=== PATIENT | female | born 1960 | race Caucasian/White ===

== ENCOUNTER 2016-06-30 10:06 | Emergency (ER) | payer BC, OTHER ==
[2016-06-30 10:38] VITALS: BP 131/73
--- NOTE | 2016-06-30 10:53 | ER Document Report ---
ED Medical Screen (RME) - General Chief Complaint: Knee Pain Stated Complaint: KNEE PAIN Time seen by provider: 10:51 Mode of Arrival: Ambulatory Information source: Patient Notes: 55-year-old female presents to ED for pain in the back of the right knee for 3 days. This morning when she went to put her shoes on and she felt a pop in the back of her knee and the pain was so bad she cannot put her foot down. It did ease off and now she is able to walk. She states the pain is like a burning pain. States she has a history of varicose veins but not blood clots. She states she's been through menopause I have greeted and performed a rapid initial assessment of this patient. A comprehensive ED assessment and evaluation of the patient, analysis of test results and completion of medical decision making process will be conducted by an additional ED providers. TRAVEL OUTSIDE OF THE [place] IN LAST 30 DAYS: No - Related Data Allergies/Adverse Reactions: poliomyelitis vaccine, live oral [Poliomyelitis Vaccine,Live] Allergy (Verified 06/30/16 10:49) unsure happened when was a child rutuss Allergy (Severe, Uncoded 06/30/16 10:49) Edema bandaids Adverse Reaction (Intermediate, Uncoded 06/30/16 10:49) Blisters Past Medical History - Past Medical History Cardiac Medical History: Reports: Hx Hypercholesterolemia, Hx Hypertension Denies: Hx Coronary Artery Disease, Hx Heart Attack Pulmonary Medical History: Reports: Hx Asthma, Hx Pneumonia - hx Denies: Hx Bronchitis, Hx COPD Neurological Medical History: Denies: Hx Cerebrovascular Accident, Hx Seizures GI Medical History: Reports: Hx Gastroesophageal Reflux Disease Musculoskeltal Medical History: Reports Hx Arthritis Past Surgical History: Denies: Hx Hysterectomy, Hx Pacemaker - Immunizations Hx Diphtheria, Pertussis, Tetanus Vaccination: Yes Physical Exam - Vital signs Vitals: Temp Pulse Resp BP Pulse Ox 98.2 F 58 L 20 131/73 H 95 06/30/16 10:37 06/30/16 10:37 06/30/16 10:37 06/30/16 10:37 06/30/16 10:37 Course - Vital Signs Vital signs: Temp Pulse Resp BP Pulse Ox 98.2 F 58 L 20 131/73 H 95 06/30/16 10:37 06/30/16 10:37 06/30/16 10:37 06/30/16 10:37 06/30/16 10:37
--- NOTE | 2016-06-30 12:00 | ER Document Report ---
ED Extremity Problem, Lower - General Chief Complaint: Knee Pain Stated Complaint: KNEE PAIN Mode of Arrival: Ambulatory Information source: Patient Notes: 55-year-old female presents to the emergency department complaining of posterior right knee pain over the last 3 days. Patient reports onset of sharp pain to posterior right knee that began 3 days ago. States pain seems to be worse in the mornings, worse with weightbearing/movement/ambulation. States pain is nonradiating and denies swelling of the knee/thigh/calf, redness, warmth , extremity weakness/numbness/tingling, or color changes. Denies obvious injury , trauma, or fall, or recent illness. TRAVEL OUTSIDE OF THE [place] IN LAST 30 DAYS: No - HPI Patient complains to provider of: Pain Location: Knee Onset/Duration: Intermittent, Persistent Quality of pain: Achy, Sharp Severity: Mild Pain Level: 2 Recent injury: No Associated symptoms: Painful ambulation. denies: Unable to bear weight Exacerbated by: Movement, Walking Relieved by: Elevation, Rest - Related Data Allergies/Adverse Reactions: poliomyelitis vaccine, live oral [Poliomyelitis Vaccine,Live] Allergy (Verified 06/30/16 10:49) unsure happened when was a child rutuss Allergy (Severe, Uncoded 06/30/16 10:49) Edema bandaids Adverse Reaction (Intermediate, Uncoded 06/30/16 10:49) Blisters Past Medical History - General Information source: Patient - Social History Smoking Status: Former Smoker Chew tobacco use (# tins/day): No Frequency of alcohol use: None Drug Abuse: None Lives with: Family Family History: Reviewed & Not Pertinent Patient has suicidal ideation: No Patient has homicidal ideation: No - Past Medical History Cardiac Medical History: Reports: Hx Hypercholesterolemia, Hx Hypertension Denies: Hx Coronary Artery Disease, Hx Heart Attack Pulmonary Medical History: Reports: Hx Asthma, Hx Pneumonia - hx Denies: Hx Bronchitis, Hx COPD Neurological Medical History: Denies: Hx Cerebrovascular Accident, Hx Seizures Renal/ Medical History: Denies: Hx Peritoneal Dialysis GI Medical History: Reports: Hx Gastroesophageal Reflux Disease Musculoskeltal Medical History: Reports Hx Arthritis Surgical Hx: Negative Past Surgical History: Denies: Hx Hysterectomy, Hx Pacemaker - Immunizations Hx Diphtheria, Pertussis, Tetanus Vaccination: Yes Review of Systems - Review of Systems Constitutional: No symptoms reported EENT: No symptoms reported Cardiovascular: No symptoms reported Respiratory: No symptoms reported Gastrointestinal: No symptoms reported Genitourinary: No symptoms reported Female Genitourinary: No symptoms reported Musculoskeletal: See HPI Skin: No symptoms reported Hematologic/Lymphatic: No symptoms reported Neurological/Psychological: No symptoms reported -: Yes All other systems reviewed and negative Physical Exam - Vital signs Vitals: Temp Pulse Resp BP Pulse Ox 98.2 F 58 L 20 131/73 H 95 06/30/16 10:37 06/30/16 10:37 06/30/16 10:37 06/30/16 10:37 06/30/16 10:37 Interpretation: Normal - General General appearance: Appears well, Alert In distress: None - HEENT Head: Normocephalic, Atraumatic Eyes: Normal Pupils: PERRL - Respiratory Respiratory status: No respiratory distress Chest status: Nontender Breath sounds: Normal Chest palpation: Normal - Cardiovascular Rhythm: Regular Heart sounds: Normal auscultation Murmur: No Pulses: Normal: Radial, Posterior tibial, Dorsalis pedis Normal capillary refill: Yes - Abdominal Inspection: Normal Distension: No distension - Back Back: Normal, Nontender - Extremities General upper extremity: Normal inspection, Nontender, Normal color, Normal ROM , Normal strength, Normal temperature. No: Tender, Edema General lower extremity: Normal inspection, Nontender, Normal color, Normal ROM , Normal strength, Normal temperature, Normal weight bearing. No: Tender, Edema , Nissa's sign Thigh: Nontender Knee: Nontender, Other - No swelling, bruising, warmth, erythema, or tenderness to anterior or posterior knee. No suggestion of abscess or Palma's cyst. Mild pain with valgus stress otherwise full and painless active and passive range of motion and weightbearing. Distal neurovascular function intact.. No: Deformity , Ecchymosis, Instability, Joint effusion, Popliteal fossa tender, Tender joint line, Unable to bear weight Calf: Nontender - Neurological Neuro grossly intact: Yes Cognition: Normal Orientation: AAOx4 Rut[place] Coma Scale Eye Opening: Spontaneous Clint Coma Scale Verbal: Oriented [place] Coma Scale Motor: Obeys Commands Clint Coma Scale Total: 15 Speech: Normal Motor strength normal: LUE, RUE, LLE, RLE Sensory: Normal - Psychological Associated symptoms: Normal affect, Normal mood - Skin Skin Temperature: Warm Skin Moisture: Dry Skin Color: Normal Course - Re-evaluation Re-evalutation: 06/30/16 12:17 Patient hemodynamically stable, in no distress, afebrile. Well's DVT criteria score -2/low probability. No indication for ultrasound at this time. Presentation presentation and physical exam findings not suggestive of significant or emergent infectious, inflammatory, or vascular etiology to symptoms. Patient appears stable for discharge and agrees with home care, follow-up with PCP and orthopedics, and strict ED return precautions should symptoms persist or worsen. Patient declined Keith wrap, crutches, or knee immobilizer. Patient presentation, findings, ED care, and plan were discussed with ED physician Dr. Silva who concurs with evaluation and plan. - Vital Signs Vital signs: Temp Pulse Resp BP Pulse Ox 98.2 F 58 L 20 131/73 H 95 06/30/16 10:37 06/30/16 10:37 06/30/16 10:37 06/30/16 10:37 06/30/16 10:37 Discharge - Discharge Clinical Impression: Right knee pain Qualifiers: Chronicity: acute Qualified Code(s): M25.561 - Pain in right knee Condition: Stable Disposition: HOME, SELF-CARE Instructions: Knee Exercise Program ([facility]), Leg Pain Nonspecific ([facility]), Warm Packs ([facility]), Anti-Inflammatory Medication ([facility]), Ice Packs ([facility]) Additional Instructions: Follow-up with your primary care provider and orthopedics this week as discussed. Return to the emergency department for any worsening symptoms or concerns. Prescriptions: Naproxen [Naprosyn 375 Mg Tablet] 375 mg PO BIDP PRN #10 tablet PRN Reason: Forms: Elevated Blood Pressure Referrals: MOMO SIMMONS MD [Primary Care Provider] - Follow up tomorrow PETE LINN MD [ACTIVE STAFF] - Follow up in 3-5 days
== END 2016-06-30 12:45 | disposition home or self-care (01) ==
LOC: ER 10:06
DX: M25.561 Pain in right knee (principal); I10 Essential (primary) hypertension; J45.909 Unspecified asthma, uncomplicated; Z88.7 Allergy status to serum and vaccine; Z87.891 Personal history of nicotine dependence
CPT/HCPCS: 99283

== ENCOUNTER → 2016-07-16 | Outpatient (CLI) | payer BC ==
--- NOTE | 2016-07-16 12:02 | XCELERA REPORT ---
[address] [address] Lower Extremity Venous Evaluation Name: JULIO ESCOBAR Age: 55 yrs Gender: Female : 1960 Patient Status: Outpatient Patient Location: Study Date: 07/16/2016 09:03 AM Procedure: Color flow and duplex imaging bilaterally of the veins of the lower extremities as well as the Common Femoral veins. Reason For Study: BILAT KNEE PAIN Ordering Physician: MOMO SIMMONS Performed By: Quinton Carpenter Right Sided Venous Evaluation A large, lucent , non vascular structure is in the Popliteal fossa, 5.9 x 2.6 cms. Normal vessel filling wall to wall, compression and augmentation as well as Colour flow down to the infrageniculate veins. Left Sided Venous Evaluation Normal vessel filling wall to wall, compression and augmentation as well as Colour flow down to the infrageniculate veins. Interpretation Summary No duplex evidence of DVT or obstruction in the bilateral lower extremities. A Popliteal(Palma's) cyst in noted in the right Popliteal area. : MOMO SIMMONS > Zay Philippe
== END ==
LOC: SP 08:52
PROVIDERS: ATTEND Internal Medicine
DX: M25.561 Pain in right knee (principal); M25.562 Pain in left knee
CPT/HCPCS: 93970

== ENCOUNTER 2017-06-19 14:09 | Emergency (ER) | payer BC, OTHER ==
[2017-06-19 14:14] VITALS: BP 144/80
[2017-06-19] MEDS ORDERED: FAMOTIDINE 20 MG TABLET PO ONE (14:34)
[2017-06-19] MEDS ORDERED: LORATADINE 10 MG TABLET PO ONE (14:34)
[2017-06-19] MEDS ORDERED: PREDNISONE 20 MG TABLET PO ONE (14:34)
--- NOTE | 2017-06-19 14:40 | ER Document Report ---
ED Skin Rash/Insect Bite/Abscs - General Chief Complaint: Rash Stated Complaint: RASH Time Seen by Provider: 06/19/17 14:18 Mode of Arrival: Ambulatory Information source: Patient Notes: 56-year-old female presents to ED for a rash with a silvery crusty look to the abdomen back and neck started yesterday. TRAVEL OUTSIDE OF THE [place] IN LAST 30 DAYS: No - HPI Patient complains to provider of: Skin rash/lesion Onset: Yesterday Onset/Duration: Gradual Quality of pain: No pain Severity: None Skin Character: Rash Quality of rash: Itchy Identify cause: No Exacerbated by: Denies Relieved by: Denies Similar symptoms previously: Yes Recently seen / treated by doctor: No - Related Data Allergies/Adverse Reactions: poliomyelitis vaccine, live oral [Poliomyelitis Vaccine,Live] Allergy (Verified 06/19/17 14:11) unsure happened when was a child rutuss Allergy (Severe, Uncoded 06/19/17 14:11) Edema bandaids Adverse Reaction (Intermediate, Uncoded 06/19/17 14:11) Blisters Past Medical History - General Information source: Patient - Social History Smoking Status: Former Smoker Cigarette use (# per day): No Chew tobacco use (# tins/day): No Smoking Education Provided: No Frequency of alcohol use: None Drug Abuse: None Lives with: Family Family History: Reviewed & Not Pertinent Patient has suicidal ideation: No Patient has homicidal ideation: No - Past Medical History Cardiac Medical History: Reports: Hx Hypercholesterolemia, Hx Hypertension Pulmonary Medical History: Reports: Hx Asthma, Hx Pneumonia - hx EENT Medical History: Reports: None Neurological Medical History: Reports: None Endocrine Medical History: Reports: Hx Hypothyroidism Renal/ Medical History: Reports: None Malignancy Medical History: Reports: None GI Medical History: Reports: Hx Gastroesophageal Reflux Disease Musculoskeltal Medical History: Reports Hx Arthritis Skin Medical History: Reports None Psychiatric Medical History: Reports: Hx Depression, Other - Bulimia Traumatic Medical History: Reports: None Infectious Medical History: Reports: None Surgical Hx: Negative Past Surgical History: Reports: None - Immunizations Immunizations up to date: Yes Hx Diphtheria, Pertussis, Tetanus Vaccination: Yes Review of Systems - Review of Systems Constitutional: No symptoms reported EENT: No symptoms reported Cardiovascular: No symptoms reported Respiratory: No symptoms reported Gastrointestinal: No symptoms reported Genitourinary: No symptoms reported Female Genitourinary: No symptoms reported Musculoskeletal: No symptoms reported Skin: Rash Hematologic/Lymphatic: No symptoms reported Neurological/Psychological: No symptoms reported -: Yes All other systems reviewed and negative Physical Exam - Vital signs Vitals: Temp Pulse Resp BP Pulse Ox 98.5 F 70 16 144/80 H 96 06/19/17 14:13 06/19/17 14:13 06/19/17 14:13 06/19/17 14:13 06/19/17 14:13 Interpretation: Normal - General General appearance: Appears well, Alert - HEENT Head: Normocephalic, Atraumatic Eyes: Normal Pupils: PERRL - Respiratory Respiratory status: No respiratory distress Chest status: Nontender Breath sounds: Normal Chest palpation: Normal - Cardiovascular Rhythm: Regular Heart sounds: Normal auscultation Murmur: No - Abdominal Inspection: Normal Distension: No distension Bowel sounds: Normal Tenderness: Nontender Organomegaly: No organomegaly - Back Back: Normal, Nontender - Extremities General upper extremity: Normal inspection, Nontender, Normal color, Normal ROM , Normal temperature General lower extremity: Normal inspection, Nontender, Normal color, Normal ROM , Normal temperature, Normal weight bearing. No: Inssa's sign - Neurological Neuro grossly intact: Yes Cognition: Normal Orientation: AAOx4 [place] Coma Scale Eye Opening: Spontaneous Clint Coma Scale Verbal: Oriented Clint Coma Scale Motor: Obeys Commands Clint Coma Scale Total: 15 Speech: Normal Motor strength normal: LUE, RUE, LLE, RLE Sensory: Normal - Psychological Associated symptoms: Normal affect, Normal mood - Skin Skin Temperature: Warm Skin Moisture: Dry Skin Color: Normal Skin irregularity: Rash Location of irregularity: Neck, Abdomen, Chest, Back Course - Re-evaluation Re-evalutation: 06/19/17 15:14 Patient was treated with prednisone Pepcid and Claritin for her nonspecific skin eruption. The rash looks like psoriasis but she states is only been there for a couple days. She states she does frequently have a similar rash to her thighs. Patient was discharged home with prescription for prednisone and instructed on use of Eucerin cream and to follow-up with her primary doctor. Patient states she is on a diet medicine that she has been on before and she just started 2 weeks ago I told her she should be careful to be sure that is not what is causing her to break out. She also has a history of bulimia and I reviewed the precautions with the LAD and the risk when she causes herself to throw up or takes a laxative. - Vital Signs Vital signs: Temp Pulse Resp BP Pulse Ox 98.5 F 70 16 144/80 H 96 06/19/17 14:13 06/19/17 14:13 06/19/17 14:13 06/19/17 14:13 06/19/17 14:13 Discharge - Discharge Clinical Impression: Rash and nonspecific skin eruption Condition: Stable Disposition: HOME, SELF-CARE Instructions: Family Physicians / Practices Additional Instructions: Allergic Contact Dermatitis You have a local allergic reaction, called contact dermatitis. This an allergy to something in contact with your skin. Poison ubaldo, jewelry, soaps, perfumes, and chemicals are common causes. Typically, an itchy rash develops a few days after the exposure. If the reaction is severe, blisters may develop. Two to three weeks may be required for healing. Generally, treatment consists of: (1) a thorough washing with soap to remove the offending substance, (2) application of a cortisone cream, and (3) antihistamines for itching. If the reaction is particularly severe, further measures may be required. These can include soaking in epsom salts or Abner's solution, and oral cortisone medications. Call the doctor if the rash worsens despite treatment, or if signs of infection occur such as spreading redness, red streaks, swollen glands, swelling , or fever. Psoriasis You have psoriasis. This is a common disease, but the cause is unknown. Psoriasis often runs in families. The skin blemishes are usually red with a thick, silvery scale. It is most commonly seen over the knees, elbows, and scalp. The nails may become thickened or pitted. Psoriasis is treated with cortisone cream. You can wrap the area with plastic wrap overnight to increase the effectiveness of the cream. Tar preparations may be used on non-hairy areas. Medicated shampoos are often prescribed. Management by a senior agricultural assistant is advised. STEROID MEDICATION: You have been given a medicine of the cortisone/steroid class. This medication is used to control inflammation or allergy. It is usually only given for a short period of time, until the acute process subsides. There are usually no side effects from short-term use of cortisone-like medications. Some persons feel an increased sense of well-being and are not sleepy at bedtime. Long-term use of cortisone medications is best avoided, unless required for a severe condition. If your condition does not remit, or relapses after the course of corticosteroid medication, you should consult your physician. ACID-SUPPRESSING MEDICATION: You have a prescription for medicine which reduces the stomach's secretion of acid. Examples include Zantac, Tagament, and Pepcid. These drugs are often used to allow healing of ulcers or esophagitis. They may be needed to prevent recurrence of ulcers in some patients, or to prevent damage from acid reflux in the esophagus. Take all medication as prescribed, even after the pain is gone. Regular antacids may be added as needed if you have symptoms while taking this medicine. These medications sometimes are prescribed for allergic reactions because they have anti-histaminic effects and relieve the rash and itching of the reaction. There are usually no side effects from this medication. But, in rare cases and particularly in the elderly, serious problems can occur. Contact your doctor if there is fever, rash, hallucinations, confusion, or unusual bruising. Contact your doctor at once if you develop lightheadedness, black or bloody stool, or bloody vomitus. ANTIHISTAMINES: An antihistamine has been given and/or prescribed to control your symptoms. Antihistamines are used for many reasons, including itching, watering eyes, runny nose, allergic swelling, hives, and insect stings. Antihistamines may cause drowsiness, especially with the first dose. Do not operate machinery or drive while under the effects of the medication. Other common side effects include dry mouth and eyes. In older persons, antihistamines can occasionally cause urinary retention, constipation, and trouble focusing the eyes. Do not combine the medication with alcohol, or with any other medication without talking to your doctor. USE OF DIPHENHYDRAMINE: The use of diphenhydramine (Benadryl) has been recommended to control allergic symptoms. The 25 mg strength is available over- the-counter, as well as the elixir. This antihistamine is used for many symptoms. It's useful for itching, watering eyes and nose, allergic swelling, hives, and insect stings. The medication can be repeated four times daily. Age Elixir (12.5 mg/tsp) 25 mg pill 2-3 yr 1/2 tsp 4-8 yr 1 tsp 9-14 yr 2 tsp one tab adult 1-2 tabs Antihistamines may cause drowsiness, especially with the first dose. Do not operate machinery or drive while under the effects of the medication. Do not combine the medication with alcohol, or with any other medication without talking to your doctor. FOLLOW-UP CARE: If you have been referred to a physician for follow-up care, call the physician s office for an appointment as you were instructed or within the next two days. If you experience worsening or a significant change in your symptoms, notify the physician immediately or return to the Emergency Department at any time for re-evaluation. Prescriptions: Prednisone 10 mg PO ASDIR PRN #21 tablet PRN Reason: Forms: Elevated Blood Pressure
== END 2017-06-19 14:48 | disposition home or self-care (01) ==
LOC: ER 14:09
DX: R21 Rash and other nonspecific skin eruption (principal); Z87.891 Personal history of nicotine dependence
CPT/HCPCS: 99282; J7512

== ENCOUNTER → 2019-12-30 | Outpatient (CLI) | payer OTHER ==
[2019-12-30 12:25] LABS: ABSOLUTE EOSINOPHILS # (AUTO) 0.3 10^3/uL (0.0-0.6); ABSOLUTE MONOCYTES (AUTO) 0.5 10^3/uL (0.1-1.4); ABSOLUTE NEUT (AUTO) 3.7 10^3/uL (1.7-8.2); BASOPHILS % (AUTO) 0.4 % (0-2); EOSINOPHILS % (AUTO) 3.3 % (0-6); HEMATOCRIT 43.5 % (36.0-47.0); HEMOGLOBIN 14.8 g/dL (12.0-15.5); MEAN CORPUSCULAR HEMOGLOBIN 29.8 pg (27.0-33.4); MEAN CORPUSCULAR HGB CONC 34.2 g/dL (32.0-36.0); MEAN CORPUSCULAR VOLUME 87 fl (80-97); MONOCYTES % (AUTO) 5.9 % (3-13); PLATELET COUNT 222 10^3/uL (150-450); RED BLOOD COUNT 4.99 10^6/uL (3.72-5.28); SEGMENTED NEUTROPHILS % (AUTO) 43.4 % (42-78); TOTAL CELLS COUNTED % (AUTO) 100 %; WHITE BLOOD COUNT 8.5 10^3/uL (4.0-10.5)
[2019-12-30 12:41] LABS: ALKALINE PHOSPHATASE 76 U/L (38-126); ANION GAP 5 (5-19); ASPARTATE AMINO TRANSFERASE 36 U/L (14-36); BILIRUBIN,TOTAL 0.8 mg/dL (0.2-1.3); BLOOD UREA NITROGEN 13 mg/dL (7-20); CALCIUM 9.2 mg/dL (8.4-10.2); CARBON DIOXIDE 29 mmol/L (22-30); CHLORIDE 104 mmol/L (98-107); GLUCOSE 120 mg/dL (75-110); POTASSIUM 4.7 mmol/L (3.6-5.0); TOTAL PROTEIN 7.3 g/dL (6.3-8.2); TRIGLYCERIDES 126 mg/dL (<150); URIC ACID 4.8 mg/dL (2.5-7.5)
[2019-12-30 12:52] LABS: DIRECT LDL 163 mg/dL (<100)
[2019-12-30 12:58] LABS: FREE T4 (FREE THYROXINE) 1.07 ng/dL (0.78-2.19)
[2019-12-30 13:12] LABS: THYROID STIMULATING HORMONE 1.61 uIU/mL (0.47-4.68)
[2020-01-01 06:36] LABS: CREATININE URINE 192.3 mg/dL (Not Estab.); MICROALBUMIN URINE 12.9 ug/mL (Not Estab.)
== END ==
LOC: OD 11:13
PROVIDERS: ATTEND Internal Medicine
DX: Z13.1 Encounter for screening for diabetes mellitus (principal); I10 Essential (primary) hypertension
CPT/HCPCS: 36415; 80053; 80061; 82043; 82570; 83036; 84439; 84443; 84550; 85025